=== PATIENT | female | born 1970 | race Caucasian/White ===

== ENCOUNTER 2018-02-19 23:06 | Inpatient (IN) | payer BC, OTHER ==
[~2018-02-19] VITALS: Ht 172.7 cm; Wt 56.2 kg
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
[2018-02-20 01:00] VITALS: BP 126/85
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
[2018-02-20 01:07] LABS: *URINE HCG, QUAL NEGATIVE (NEGATIVE)
[2018-02-20] MEDS ORDERED: ALBU8.5H8 IH (01:07)
[2018-02-20] MEDS ORDERED: DOXY25TA54 PO (01:07)
[2018-02-20] MEDS ORDERED: DIPH50CA37 GT (01:07)
[2018-02-20] MEDS ORDERED: MIRALAX 17 GM POWD.PACK PO PRN (01:15)
[2018-02-20] MEDS ORDERED: THIAMINE HCL 200 MG/2 ML VIAL IM ONE (01:15)
[2018-02-20] MEDS ORDERED: DICYCLOMINE HCL 20 MG TABLET PO PRN (01:15)
[2018-02-20] MEDS ORDERED: MAG HYDROX/AL HYDROX/SIMETH 30 ML LIQUID UDC PO PRN (01:15)
[2018-02-20] MEDS ORDERED: ACETAMINOPHEN 325 MG TABLET PO PRN (01:15)
[2018-02-20] MEDS ORDERED: ONDANSETRON ODT 4 MG TAB.RAPDIS SL PRN (01:15)
[2018-02-20] MEDS ORDERED: MAGNESIUM HYDROXIDE 30 ML LIQUID UDC PO PRN (01:15)
[2018-02-20] MEDS ORDERED: LOPERAMIDE HCL 2 MG CAPSULE PO PRN ×2 (01:15)
[2018-02-20 01:19] LABS: *AMPHETAMINE, URINE NEGATIVE (NEGATIVE); *BARBITURATE, URINE NEGATIVE (NEGATIVE); *CANNABINOID, URINE NEGATIVE (NEGATIVE); *COCCAINE, URINE NEGATIVE (NEGATIVE); *OPIATE, URINE NEGATIVE (NEGATIVE); *PHENCYCLIDINE SCREEN,URINE NEGATIVE (NEGATIVE)
[2018-02-20 01:40] LABS: BASOPHILS # (AUTO) 0.1 K/uL (0.0-8.0); BASOPHILS % (AUTO) 1.3 % (0.0-2.0); EOSINOPHILS # (AUTO) 0.1 K/uL (0.0-0.7); EOSINOPHILS % (AUTO) 1.8 % (0.0-7.0); HEMATOCRIT 41.7 % (31.2-41.9); HEMOGLOBIN 14.4 g/dL (10.9-14.3); LYMPHOCYTES # (AUTO) 2.3 K/uL (20.0-40.0); LYMPHOCYTES % (AUTO) 35.3 % (20.5-51.5); MEAN CORPUSCULAR HEMOGLOBIN 35.3 uug (24.7-32.8); MEAN CORPUSCULAR HGB CONC 35 g/dL (32.3-35.6); MEAN CORPUSCULAR VOLUME 102.4 fL (75.5-95.3); MONOCYTES # (AUTO) 0.4 K/uL (2.0-10.0); MONOCYTES % (AUTO) 5.6 % (0.0-11.0); NEUTROPHILS # (AUTO) 3.6 K/uL (1.8-8.9); PLATELET COUNT (AUTO) 290 K/uL (179-408); RED BLOOD CELL COUNT(AUTO) 4.08 MIL/uL (3.63-4.92); WHITE BLOOD COUNT (AUTO) 6.5 K/uL (3.8-11.8)
[2018-02-20 01:53] LABS: BILIRUBIN,TOTAL 0.3 mg/dL (0.2-1.0); MAGNESIUM 2.1 mg/dL (1.8-2.4); POTASSIUM 4.1 mmol/L (3.5-5.1); TOTAL PROTEIN, SERUM 7.8 g/dL (6.4-8.2)
[2018-02-20 02:27] LABS: THYROID STIMULATING HORMONE 4.455 mIU/mL (0.358-3.740)
[2018-02-20] MEDS ORDERED: HYDROXYZINE PAMOATE 25 MG CAPSULE PO ONE (02:30)
[2018-02-20] MEDS: IBUPROFEN 400 MG TABLET PO PRN (02:36)
[2018-02-20] MEDS: diphenhydrAMINE 50 MG CAPSULE PO PRN (02:36)
--- NOTE | 2018-02-20 02:36 | NUR ---
PRN MEDS MOTRIN,BENADRYL AND VISTARIL GIVEN ORDERED FOR C/O BACK PAIN 5/10,INSOMNIA AND ANXIETY RESPECTIVELY.WILL MONITOR FOR EFFECTIVENESS.
--- NOTE | 2018-02-20 03:35 | NUR ---
PRN REASSESSMENT PT IS CALM AND RESTING IN BED WITH EYES CLOSED.BREATHING IS EVEN AND NON LABORED,NO S/S OF DISTRESS NOTED.
--- NOTE | 2018-02-20 04:00 | NUR ---
CIWA DEFERRED DUE TO PT BEING ASLEEP,V/S REFUSED.
[2018-02-20] MEDS ORDERED: ETAN50DI2 SQ (04:11)
[2018-02-20] MEDS ORDERED: ZOLP10TA2 PO (05:05)
--- NOTE | 2018-02-20 06:30 | NUR ---
END OF SHIFT Pt is awake,asking for medications,also wants to leave,said that she has to catch a flight,unable to answer where she is going to or if she has a ticket.Pt is confused,keeps asking what the date is,has poor eye contact, observed staring blankly in space in response to any questions asked.PRN Motrin,Vistaril and Benadryl were given and were effective.Pt slept 3 hours,fluid intake is 250 mls,voided x 2. PO fluids encouraged. When asked about her alcohol intake ,she stated that she has been drinking for much longer than 3 days,still unable to give exact length of time.Pt is anxious because she wants to leave,no s/s of withdrawals noted. All safety measures in place, call light is within reach, will continue to monitor for safety.
--- NOTE | 2018-02-20 07:55 | NUR ---
Start of Shift Pt is a 47 y/o F admitted today 02/20/18 on 0100 for medically supervised ETOH and benzo withdrawal. Pt has not been placed on any tapers as of yet but prn meds are avail. upon entering room, pt is laying in bed w/ lights off, covered in blankets and appears drowsy; respiration even and unlabored. Room is odorous of ETOH and pt appears to be still intoxicated. Pt has facial flushing, no eye contact when speaking, has a delayed response to questions, selective in responding to questions, and has a blunt affect. Pt states she is wants to leave AMA stating, "I need to go to work.. and if I don't go back, my is going to leave me. I need to fly back as soon as possible." Educate pt, explained risks of leaving and benefits of completion of detox; however pt is still thinking about leaving. Encouraged pt to verbalized feelings about situation. Side rails upx2, bed in lowest postion. Call light is within reach. Will continue to monitor.
[2018-02-20 08:00] VITALS: BP 96/57
[2018-02-20] MEDS: THIAMINE HCL 100 MG TABLET PO SCH (08:46)
[2018-02-20] MEDS: LORAZEPAM 1 MG TABLET PO PRN ×4 (08:46→21:49)
[2018-02-20] MEDS: MULTIVITAMINS,THERAPEUTIC TABLET PO SCH (08:46)
[2018-02-20] MEDS: FOLIC ACID 1 MG TABLET PO SCH (08:46)
--- NOTE | 2018-02-20 08:46 | NUR ---
PRN Ativan 1 mg po prn given for CIWA 13; pt is flushed, anxious and agitated, restless, exhibits increased emotional amplitude, has clammy skin, has an anxious and upset mood and blunt affect. Tremors are noted. Will monitor and reassess.
--- NOTE | 2018-02-20 08:46 | NUR ---
CIWA 13 Upon entering room, pt is laying in bed w/ lights off, covered in blankets and appears drowsy; respiration even and unlabored. Room is odorous of ETOH and pt appears to be partially intoxicated. Pt has facial flushing, has a blunt affect, no eye contact when speaking, but has a delayed response to questions, and stares without answering questions occasionally; pt is also selective in responding to certain questions. Pt feels "extremely cold," appears disheveled, very flushed, is highly anxious, tremulous, agitated, irritated, restless, and c/o light sensitivity. Ativan prn will be administered; encouraged pt to use deep breathing exercises to promote relaxation.
--- NOTE | 2018-02-20 09:46 | NUR ---
Reassessment Pt states she is still restless, is tremulous "inside her body," anxious and agitated, mild tremors are noted. Encouraged pt to use non-pharmalogical interventions to promote relaxation. Need more encouragement and further education. Will continue to monitor. Addendum: 02/20/18 at 1503 by CARLENE MORALES RN JOSEF Martinez
--- NOTE | 2018-02-20 10:35 | NUR ---
Substance Use Hx & Treatment Hx Update Pt reports she has been binge drinking for 3 to 4 days on and off, without having more than having drinking 1-2 days in between due to withdrawal symptoms. States this pattern of drinking has been going on for 8 months; however pt states she has been drinking for longer but will not explain in detail. Pt recalls this current run was 3-4 days, last drink was yesterday 02/19/18 1050 ml of wine and one 8 oz can of beer immediately prior to arrival. Pt states she has been taking xanax 3 blue oval shaped tablets 3 mgs in total daily for 5 years that is prescribed to her by her PCP. Last use was yesterday 02/19/18. Pt states she take Ambien 10 mg daily for 6-7 years that is prescribed to her by her PCP. Last use was yesterday 02/19/18. Pt states she was at [facility] in for 90 days; left in September 2015. Addendum: 02/20/18 at 1857 by CARLENE MORALES RN Pt verbalized that she would take more than prescribed of the xanax and ambien on some days occasionally.
--- NOTE | 2018-02-20 11:37 | NUR ---
CIWA 16 / PRN Ativan 2 mg po prn given; CIWA 16. Pt present increased agitation, anxiety, tremors, sweating, clammy hands, feeling "cold," flushing, and nausea. Pt is restless and fidgety, and highly irritable; states that the last medication did not help her w/d symptoms. Will monitor and reassess. Addendum: 02/20/18 at 1346 by CARLENE MORALES RN BP 135/84, HR 93
[2018-02-20 12:08] VITALS: BP 135/84
[2018-02-20] MEDS ORDERED: 5 DAY TAPER VALIUM-SERENITY PROTOCOL PO PRN (12:15)
--- NOTE | 2018-02-20 12:30 | NUR ---
[employer] 5 day Valium taper ordered by MD; starting today.
--- NOTE | 2018-02-20 12:37 | NUR ---
Reassessment Pt reports she still feels tremulous inside and her hands appear to be shaking. Pt has a worried look and states she is highly anxious, has a sense of panic, sensations of feeling very cold, skin feels clammy, and flushed, pt appears restless, anxious, agitated and fidgety. Pt reports the med does not seem to be effective for her s/s yet. Encouraged pt to use non-pharmalogical methods to promote relaxation and distraction. Will monitor and reassess. Addendum: 02/20/18 at 1458 by CARLENE MORALES RN JOSEF Cox
[2018-02-20] MEDS: CLONIDINE HCL 0.1 MG TABLET PO PRN (12:56)
[2018-02-20] MEDS: DIAZEPAM 10 MG TABLET PO SCH ×3 (12:56→20:15)
--- NOTE | 2018-02-20 12:56 | NUR ---
PRN Clonidine 0.1 mg po prn given for sweating, anxiety, feeling cold sensations. Will monitor and reassess.
--- NOTE | 2018-02-20 13:56 | NUR ---
Reassessment Pt reports med was partially effective for sweating, clammy skin, anxiety and cold sensations. Gave pt extra blankets and heat pack. Will continue to monitor.
--- NOTE | 2018-02-20 14:50 | NUR ---
PRN Ativan 2 mg po prn given; pt appears highly anxious, agitated, irritable, fidgety, has a worried/sad expression, has racing thoughts, w/ increased amplitude, difficulty concentrating, difficulty thinking, sense of panic, c/o of increased w/d symptoms including, tremors, sweating, flushing, sensitivity to the light, anxiety and agitation, some nausea and restlessness. CIWA 19.
[2018-02-20 16:00] VITALS: BP 135/81
--- NOTE | 2018-02-20 16:00 | NUR ---
CIWA 20 / Reassessment Pt continues to appears highly anxious, flushed, w/ a worried expression and affect, agitated, irritable, fidgety, restless, pt is currently walking laps around the unit. Pt exhibits racing thoughts and increased amplitude, difficulty concentrating, difficulty thinking, sense of panic, tremors, sweating, sensitivity to the light, anxiety and agitation. Pt has gotten off the phone with her and had told her they are getting a divorce. Pt states she is thinking about leaving AMA again but is redirectable. Scheduled meds to be given.
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
--- NOTE | 2018-02-20 18:57 | NUR ---
End Of Shift Pt has been isolative, withdrawn and guarded. Pt fixed and adamant on leaving but was able to be redirected after some time. Last CIWA 20 @1600. Pt has been given Ativan 1 mg po @0846, Ativan 2 mg po @1256, ativan 2 mg @1450 and clonidine 0.1 mg po PRNs during shift. Pt has been placed on a Valium taper starting today; first dose was scheduled 1300. Pt ate 0/25/25% of meals. Safety measures in place. Endorsement will be given.
--- NOTE | 2018-02-20 19:30 | NUR ---
Start of shift note Received report from day shift Nurse. Patient is a 47 year old female, admitted for ETOH/Benzo withdrawal. Patient is on Valium taper, started today. Patient was anxious throughout the day. PRN Ativan x 3 and Clonidine given. Last CIWA 20. Patient alert and oriented x 4. Patient presents with flat affect, depressed mood, worried, flushed face, anxiety, restless, bilateral hand tremors, cold sweats, chills, pins and needles sensation on fingertips, headache, sensitivity to light, no appetite and c/o muscle aches. Relaxation technique provided. Call light in reach. Will continue to monitor.
[2018-02-20 20:00] VITALS: BP 124/70
[2018-02-20] MEDS ORDERED: METHOCARBAMOL 750 MG TABLET PO ONE (20:00)
--- NOTE | 2018-02-20 20:00 | NUR ---
CIWA assessment Flushed face, anxiety, restless, bilateral hand tremors, cold sweats, chills, pins and needles sensation on fingertips, headache, sensitivity to light, no appetite and c/o muscle aches. CIWA 17
[2018-02-20] MEDS: GABAPENTIN 400 MG CAPSULE PO SCH (20:20)
--- NOTE | 2018-02-20 20:20 | NUR ---
One time Robaxin administration Patient c/o muscle aches. Will monitor for effectiveness
--- NOTE | 2018-02-20 21:20 | NUR ---
PRN Robaxin re-assessment Patient states Robaxin helpful and effective. Will continue to monitor.
--- NOTE | 2018-02-20 21:45 | NUR ---
CIWA assessment Patient states she's anxious, restless, irritable , sweats and bilateral tremors. CIWA 14.
[2018-02-20] MEDS: QUETIAPINE FUMARATE 25 MG TABLET PO SCH (21:49)
--- NOTE | 2018-02-20 21:49 | NUR ---
PRN Ativan administration Patient states she's anxious, restless, irritable , sweats and bilateral tremors. CIWA 14
--- NOTE | 2018-02-20 22:49 | NUR ---
PRN Ativan re-assessment Patient lying in bed with eyes closed. Respiration even and unlabored. CIWA deferred. Will continue to monitor
[2018-02-21] VITALS: BP 128/76
--- NOTE | 2018-02-21 | NUR ---
CIWA deferred Patient lying in bed with eyes closed. Respiration even and unlabored. Will continue to monitor.
--- NOTE | 2018-02-21 03:40 | NUR ---
CIWA assessment Patient went up to the nurses station . Patient presents with anxiety, restless, wants to smoke , emotional votality, teary eyed, worried, sad and c/o headache. CIWA 11
[2018-02-21] MEDS: CLONIDINE HCL 0.1 MG TABLET PO PRN ×2 (03:41→12:05)
--- NOTE | 2018-02-21 03:41 | NUR ---
PRN Clonidine and Tylenol administration Patient presents with anxiety, restless, emotional votality, teary eyed, worried, sad and c/o headache. Relaxation technique provided. Will monitor for effectiveness.
[2018-02-21 04:00] VITALS: BP 115/77
--- NOTE | 2018-02-21 04:00 | NUR ---
CIWA assessment Patient came back from smoking. Patient anxious, restless, emotional votality, teary eyed, worried and sad and with headache. Patient was given PRN Clonidine and Tylenol. Relaxation technique provided and positive encouragement given. CIWA 11.
--- NOTE | 2018-02-21 04:41 | NUR ---
PRN Clonidine and Tylenol re-assessment Patient lying in bed with eyes closed. Respiration even and unlabored. No facial grimacing. Will continue to monitor.
--- NOTE | 2018-02-21 07:10 | NUR ---
End of shift note Patient slept 7 hours. Fluid intake 1,000 ml. Voided x 2. No BM. Monitored patient throughout shift. Patient presented with flat affect, depressed mood, worried, flushed face, anxiety, restless, bilateral hand tremors, cold sweats, chills, pins and needles sensation on fingertips, headache, sensitivity to light, no appetite and muscle aches. CIWA 17 at 2000. Scheduled medication and taper given as ordered. One time Robaxin given, effective. At 2145, Patient was anxious and restless. CIWA 14. PRN Valium given. CIWA deferred after an hour, patient asleep. At 0340, patient presented with anxiety, restless, emotional votality, teary eyed, worried, sad and c/o headache. Relaxation technique provided and positive encouragement given. PRN Clonidine and Tylenol given. Safety measures in place. Call light in reach. Will continue to monitor. Last CIWA 11.
[2018-02-21 08:00] VITALS: BP 124/75
[2018-02-21 08:03] LABS: AMYLASE 88 U/L (25-115); LIPASE 134 U/L (73-393)
[2018-02-21 08:06] LABS: HEPATITIS B SURFACE AG Negative (Negative)
--- NOTE | 2018-02-21 08:30 | NUR ---
Start of Shift / CIWA 15 Pt is currently sitting up in bed, ate 50% of breakfast, has a flat affect, depressive mood, and a disheveled appearance. Pt presents anxiety, agitation, restlessness, sweating, pins and needle sensations bilaterally on hands, cold sweats, sensation of feeling very cold, sensitivity to the light, headache, fatigue, anhedonia, dysphoria, stomach cramps, poor appetite myalgia of the legs, difficulty falling asleep and gross/fine tremors are seen. Scheduled meds to be given with prn comfort meds. Educated pt with today's plan of care and med regimen. Encouraged pt to verbalized feelings about situation and attend groups. Encouraged pt to maintain personal hygiene and pt stated she will take a shower today. Encouraged pt to increase fluids as tolerated; pt verbalized understanding. Side rails padded and upx2, bed in lowest position. Call light is within reach. Will continue to monitor.
[2018-02-21] MEDS: FOLIC ACID 1 MG TABLET PO SCH (08:36)
[2018-02-21] MEDS: THIAMINE HCL 100 MG TABLET PO SCH (08:36)
[2018-02-21] MEDS: GABAPENTIN 400 MG CAPSULE PO SCH ×3 (08:36→20:00)
[2018-02-21] MEDS: MULTIVITAMINS,THERAPEUTIC TABLET PO SCH (08:36)
[2018-02-21] MEDS: IBUPROFEN 400 MG TABLET PO PRN (08:37)
[2018-02-21] MEDS: DIAZEPAM 10 MG TABLET PO SCH ×3 (08:37→20:00)
--- NOTE | 2018-02-21 08:37 | NUR ---
PRN Ibuprofen 400 mg po prn given for muscle aches and pain of the legs. Will monitor and reassess.
[2018-02-21] MEDS ORDERED: TUBERCULIN,PURIF.PROT.DERIV. 5 TU/0.1 ML TEST ID ONE (09:00)
--- NOTE | 2018-02-21 09:37 | NUR ---
Reassessment Pt verbalized ibuprofen was effective in decreasing muscle aches of the legs. Safety measures in place. Will continue to monitor.
--- NOTE | 2018-02-21 10:13 | NUR ---
Therapist prompted client to attend group therapy.
--- NOTE | 2018-02-21 12:00 | NUR ---
CIWA 17 Pt is flushed, has a flat affect and depressive mood. Pt has taken a shower and attended morning groups. Pt appears fidgety, presents increased anxiety, agitation, restlessness, sweating, pins and needle sensations bilaterally on hands, cold sweats, sensation of feeling very cold, sensitivity to the light, headache, fatigue, anhedonia, dysphoria, stomach cramps, poor appetite myalgia of the legs, difficulty falling asleep and gross/fine tremors are seen. Prn meds to be given12. Encouraged pt to use non-pharmacological methods for management of symptoms. Will continue to monitor.
[2018-02-21 12:05] VITALS: BP 133/84
--- NOTE | 2018-02-21 12:05 | NUR ---
PRN Clonidine 0.1 mg po prn given for heightened anxiety; pt reports she attended groups and thought it was beneficial however her anxiety increased. Will monitor and reassess.
--- NOTE | 2018-02-21 13:05 | NUR ---
Reassessment Pt reports that med was effective in decreasing anxiety, and states she feels better than before. Safety measures in place. Will monitor.
--- NOTE | 2018-02-21 13:15 | NUR ---
Therapist prompted client to attend twice daily group therapy sessions.
[2018-02-21 16:30] VITALS: BP 140/87
--- NOTE | 2018-02-21 16:30 | NUR ---
GARRICKWA 15 Pt has just finished group and is seeking to go out to the patio. Pt continues to present flushing, has a flat affect and depressive mood, increased anxiety, agitation, restlessness, sweating, pins and needle sensations bilaterally on hands, cold sweats, sensation of feeling very cold, sensitivity to the light, headache, fatigue, anhedonia, dysphoria, stomach cramps, poor appetite, and gross/fine tremors are seen. Refuses prn meds. Encouraged pt to use non-pharmacological methods for management of symptoms. Will continue to monitor.
--- NOTE | 2018-02-21 18:44 | NUR ---
End Of Shift Pt was fixated on making phone calls to her employer. Pt attended all groups, took a shower, and put makeup on. Last CIWA 15 @1600. Pt c/o lower leg pain and anxiety. Pt has been given ibuprofen 400 mg po prn clonidine 0.1 mg po PRN. Pt ate 0/25/25% of meals. Needs more encouragement to increase food intake. Safety measures in place. Endorsement will be given.
--- NOTE | 2018-02-21 19:30 | NUR ---
Start of shift note Received report from day shift nurse. Patient is a 47 year old female admitted for ETOH withdrawal. Patient is on 2nd day of her Valium taper. Patient was given PRN Clonidine and Motrin. Last CIWA 15. Patient alert and oriented x 4. Patient presents with flat affect, worried, anxiety, restlessness, bilateral hand tremors, hot and cold sweats, emotional votality and difficulty concentrating . Relaxation technique provided and Positive encouragement given. Safety measures in place. Call light in reach. Will continue to monitor.
[2018-02-21 20:00] VITALS: BP_SYST 114; BP_SYST 129; BP_DIAS 80; BP_DIAS 84
--- NOTE | 2018-02-21 20:00 | NUR ---
CIWA assessment Patient presents with anxiety, restlessness, bilateral hand tremors, hot and cold sweats, emotional votality and difficulty concentrating . Relaxation technique provided and Positive encouragement given. CIID 12
[2018-02-21] MEDS: QUETIAPINE FUMARATE 25 MG TABLET PO SCH (20:58)
[2018-02-22] VITALS: BP 122/70
--- NOTE | 2018-02-22 | NUR ---
CIWA deferred Patient lying in bed with eyes closed. Respiration even and unlabored. Will continue to monitor
[2018-02-22 04:00] VITALS: BP 115/74
--- NOTE | 2018-02-22 04:00 | NUR ---
CIWA deferred Patient lying in bed with eyes closed. Respiration even and unlabored. Will continue to monitor
--- NOTE | 2018-02-22 05:30 | NUR ---
CIWA assessment Patient awake , anxious and restless. Non-pharmacological intervention ineffective. CIWA 9
[2018-02-22] MEDS: CLONIDINE HCL 0.1 MG TABLET PO PRN ×3 (05:38→21:47)
--- NOTE | 2018-02-22 05:38 | NUR ---
PRN Clonidine administration Patient presents with flushed face and anxiety, restlessness. Will monitor for effectiveness
--- NOTE | 2018-02-22 06:38 | NUR ---
PRN Clonidine re-assessment Patient lying in bed with eyes closed. Respiration even and unlabored. Will continue to monitor.
--- NOTE | 2018-02-22 07:05 | NUR ---
End of shift note Patient slept 6 hours. Fluid intake 1,651 ml. Voided x 2. BM x 1. Monitored patient throughout shift. Patient alert and oriented x 4. Patient presented with flat affect, worried, anxiety, restlessness, bilateral hand tremors, hot and cold sweats, emotional votality and difficulty concentrating . Relaxation technique provided and Positive encouragement given. Scheduled medication and taper given as ordered, tolerated well and no adverse reaction. At 0538, Patient woke up anxious and restless. PRN Clonidine given. Safety measures in place. Call light in reach. Will continue to monitor. Last CIWA 9 .
--- NOTE | 2018-02-22 07:30 | NUR ---
Start Of Shift Pt. is a 47 y/o female admitted for the medically managed withdrawal from ETOH (wine) and Benzodiazepines (Xanax). Pt. was also using Ambien nightly along with her substance abuse. Pt. was placed on a 5 day Valium taper that was ordered on 02/20/2018 to manage her withdrawal symptoms. Endorse from previous shift pt. presented with a flat affect, difficulty concentrating, chills, diaphoresis, tremors, anxiety, and restlessness. Pt. was given PRN Clonidine to manage withdrawal symptoms. Last CIWA of 9. Received pt. in room sitting on the edge of her bed. Pt. presents with a flat affect and is withdrawn and guarded upon approach. Encouraged pt. to verbalize concerns and emotions. Educated pt. on treatment plan and medication regiment. Pt. verbalize understanding. Safety measures in place. Will continue to monitor pt.'s behavior for safety.
[2018-02-22 08:00] VITALS: BP 104/68
--- NOTE | 2018-02-22 08:00 | NUR ---
CIWA assessment CIWA 12. Pt. presents with anxiety, diaphoresis, restlessness and tremors. Will administer medication as ordered. Will continue to monitor pt.'s behavior for safety.
[2018-02-22] MEDS: MULTIVITAMINS,THERAPEUTIC TABLET PO SCH (08:10)
[2018-02-22] MEDS: GABAPENTIN 400 MG CAPSULE PO SCH ×3 (08:10→20:03)
[2018-02-22] MEDS: THIAMINE HCL 100 MG TABLET PO SCH (08:10)
[2018-02-22] MEDS: FOLIC ACID 1 MG TABLET PO SCH (08:10)
[2018-02-22] MEDS: DIAZEPAM 5 MG TABLET PO SCH ×4 (08:10→20:04)
--- NOTE | 2018-02-22 10:07 | NUR ---
Client was prompted to attend group therapy sessions.
[2018-02-22 12:00] VITALS: BP 148/98
--- NOTE | 2018-02-22 12:00 | NUR ---
CIWA assessment CIWA 9. Pt. presents with anxiety, diaphoresis, restlessness and tremors. Pt. compliant with medication regiment. Will continue to monitor pt.'s behavior for safety.
--- NOTE | 2018-02-22 14:43 | NUR ---
PRN Medication Pt. in room sitting in bed. Pt. complaining of increased anxiety. PRN Clonidine given at this time for anxiety. Will continue to monitor pt.'s behavior for safety, and medication effectiveness.
--- NOTE | 2018-02-22 15:15 | NUR ---
PRN Re-Assessment Pt. reports decreased feelings of anxiety. Medication effective will continue to monitor pt.'s behavior for safety.
[2018-02-22 16:00] VITALS: BP 125/80
--- NOTE | 2018-02-22 16:00 | NUR ---
CIWA assessment CIWA 9. Pt. presents with anxiety, diaphoresis, restlessness and tremors. Pt. compliant with medication regiment. Will continue to monitor pt.'s behavior for safety.
--- NOTE | 2018-02-22 19:24 | NUR ---
End Of Shift Pt. is a 47 y/o female admitted for the medically managed withdrawal from ETOH (wine) and Benzodiazepines (Xanax). Pt. was also using Ambien nightly along with her substance abuse. Pt. was placed on a 5 day Valium taper that was ordered on 02/20/2018 to manage her withdrawal symptoms. Throughout shift pt. presented with a flat affect, difficulty concentrating, chills, diaphoresis, tremors, anxiety, and restlessness. Pt. was given PRN Clonidine to manage withdrawal symptoms. Last CIWA of 9. Pt. compliant with treatment plan and medication regiment. Safety measures in place. Will endorse pt.'s care to oncoming shift.
--- NOTE | 2018-02-22 19:24 | NUR ---
START OF SHIFT NOTE: This is report on patient, an 47 year old female, continues ordered 5 day Valium Taper (today is day #3) , ordered for Benzodiazepines and Alcohol withdrawal. Patient tolerated well. Upon endorsement, patient is in her room, lying in bed, and watching TV. Patient is alert and oriented x4, ambulatory with steady gait, soft clear speech. The patient appears worried, with easy distracted, anxious mood, and flat affect. Encourage to expressing her feelings, reassuring provided. The patient noted disheveled, unshaven, with uncombed hair. During day shift patient presented with following mild withdrawal symptoms such as anxiety, agitation, depression, irritability, nervousness, restlessness, tremors, fatigue, and yawning. The most recent CIWA=9. PRN Clonidine 0.1 mg PO administrated for anxiety at 1443, and was effective. Patient remains compliant with treatment, medications, and diet regimen. Encouraged to attend group activities. Encouraged to intake fluids as tolerated. All needs met. Safety measures: Call light within reach, bed locked in lowest position, padded bed rails up x2. Endorsed by outgoing day shift nurse. Will continue to monitor closely.
[2018-02-22 20:00] VITALS: BP 105/72
--- NOTE | 2018-02-22 20:00 | NUR ---
CIWA ASSESSMENT CIWA=8 at 1999. The patient appears sad and worried. Mood anxious and flat affect. The patient presented with following withdrawal symptoms such as anxiety, agitation, depression, irritability, nervousness, sweating, tremors, restlessness, fatigue, and yawning. Encouraged to intake fluids as tolerated. Safe and calm environment provided. Encouraged to intake fluids as tolerated. All needs met. Safety measures: Call light within reach, bed locked in lowest position, padded bed rails up x2. Will continue to monitor closely.
[2018-02-22] MEDS: QUETIAPINE FUMARATE 25 MG TABLET PO SCH (21:46)
--- NOTE | 2018-02-22 21:47 | NUR ---
PRN CLONIDINE 0.1 MG PO ADMINISTRATION Patient c/o increased anxiety. PRN Clonidine 0.1 mg PO administrated for anxiety at 2147 as ordered. The patient tolerated well. Safe and calm environment provided. Encouraged to intake fluids as tolerated. All needs met. Safety measures: Call light within reach, bed locked in lowest position, padded bed rails up x2. Will continue to monitor closely.
--- NOTE | 2018-02-22 22:47 | NUR ---
PRN CLONIDINE PO RE-ASSESSMENT The patient sleeping. Respirations are even and unlabored. RR:16. PRN Clonidine 0.1 mg PO administrated for anxiety at 2147 was effective. Safe and calm environment provided. Encouraged to intake fluids as tolerated. All needs met. Safety measures: Call light within reach, bed locked in lowest position, padded bed rails up x2. Will continue to monitor closely.
[2018-02-23] VITALS: BP 90/51
--- NOTE | 2018-02-23 | NUR ---
CIWA ASSESSMENT CIWA=8 at 0000. Patient presented with anxiety, agitation, depression, irritability, nervousness, sweating, fine tremors, flashed face, restlessness, fatigue, and yawning. Encouraged to intake fluids as tolerated. Safe and calm environment provided. Encouraged to intake fluids as tolerated. All needs met. Safety measures: Call light within reach, bed locked in lowest position, padded bed rails up x2. Will continue to monitor closely.
--- NOTE | 2018-02-23 | NUR ---
CIWA ASSESSMENT CIWA=12 at 0000. The patient appears anxious, agitated, yawning, with flashed face, c/o irritability,nervousness, sweating, tremors, restlessness, and fatigue. Encouraged to intake fluids as tolerated. All needs met. Safety measures: Call light within reach, bed locked in lowest position, padded bed rails up x2. Will continue to monitor closely.
[2018-02-23] MEDS: CLONIDINE HCL 0.1 MG TABLET PO PRN ×3 (03:45→17:20)
[2018-02-23] MEDS ORDERED: HYDROXYZINE PAMOATE 25 MG CAPSULE PO ONE (03:45)
--- NOTE | 2018-02-23 03:45 | NUR ---
PRN CLONIDINE 0.1 MG PO ADMINISTRATION Patient c/o increased anxiety. PRN Clonidine 0.1 mg PO administrated for anxiety at 0345 as ordered. The patient tolerated well. Safe and calm environment provided. Encouraged to intake fluids as tolerated. All needs met. Safety measures: Call light within reach, bed locked in lowest position, padded bed rails up x2. Will continue to monitor closely.
[2018-02-23 04:00] VITALS: BP 114/84
--- NOTE | 2018-02-23 04:00 | NUR ---
CIWA ASSESSMENT CIWA=11 at 0400. The patient appears sad, worried, with anxious mood and flat affect. Patient experienced withdrawal symptoms such as anxiety, agitation, irritability, flashed face, nervousness, sweating, tremors, restlessness, fatigue, and yawning. PRN Clonidine PO administrated as ordered. Encouraged to intake fluids as tolerated. All needs met. Safety measures: Call light within reach, bed locked in lowest position, padded bed rails up x2. Will continue to monitor closely.
--- NOTE | 2018-02-23 04:45 | NUR ---
PRN CLONIDINE PO RE-ASSESSMENT The patient sleeping. Respirations are even and unlabored. RR:15. PRN Clonidine 0.1 mg PO administrated for anxiety at 0345 was effective. Safe and calm environment provided. Encouraged to intake fluids as tolerated. All needs met. Safety measures: Call light within reach, bed locked in lowest position, padded bed rails up x2. Will continue to monitor closely.
--- NOTE | 2018-02-23 07:13 | NUR ---
END OF SHIFT NOTE; Presented patient, an 47 year old female, continues 5 day Valium taper (day 4), ordered for Benzodiazepines and Alcohol withdrawal. She is tolerated well. Patient is alert and oriented x4, steady gate, soft and clear speech, verbally appropriate and cooperative. CIWA=8 at 2000, CIWA=8 at 0000. Last CIWA=11 at 0400. Throughout my shift patient experienced anxiety, agitation, depression, irritability, nervousness, tremors, body aches, myalgia, stomach cramps, restlessness, sweating, fatigue, and yawning. PRN Clonidine 0.1 mg PO administrated for anxiety x2: at 2147, at 0345, and were effective. The patient remains compliant with treatment plan, medications, and diet regime. Encouraged to attend group activities. Encouraged to intake fluids as tolerated. Educated for non pharmacological method that can be used to help control pain. Patient slept for 7 hours, intake 1,510 ml, output: voided x2. Safe and calm environment provided. Encouraged to intake fluids as tolerated. All needs met. Safety measures: Call light within reach, bed locked in lowest position, padded bed rails up x2. Endorsed to day shift nurse.
[2018-02-23 08:00] VITALS: BP 94/59
--- NOTE | 2018-02-23 08:00 | NUR ---
Start of Shift Notes/CIWA Assessment: Patient received in her room. Patient appears anxious, flat affect, and noted with sweating and mild tremors to BUE. She appears agitated and states "I'm no longer taking any Valium." Patient was educated on the risk and benefits involved especially emphasized on risk for seizures. Patient verbalizes "Don't worry, I'm not going to have a seizure." Seizure education was provided and reinforced. CIWA 11 upon assessment. Patient is a 47 year old female admitted for ETOH/BZO withdrawal who was placed on a 5-day Valium taper as ordered. No adverse reactions noted. Per night report, patient was given Clonidine x 2. Slept for a total of 7 hours. Last CIWA 11. Educated patient on her current plan of care for the day and her medication regimen. Encouraged oral fluid intake and encouraged group participation to learn new skills to prevent relapse. Will continue to monitor.
[2018-02-23] MEDS: GABAPENTIN 400 MG CAPSULE PO SCH ×3 (09:00→20:52)
[2018-02-23] MEDS: DIAZEPAM 5 MG TABLET PO SCH ×3 (09:00→20:52)
[2018-02-23] MEDS: THIAMINE HCL 100 MG TABLET PO SCH (09:00)
[2018-02-23] MEDS: FOLIC ACID 1 MG TABLET PO SCH (09:00)
[2018-02-23] MEDS: MULTIVITAMINS,THERAPEUTIC TABLET PO SCH (09:00)
--- NOTE | 2018-02-23 09:19 | NUR ---
0900 meds not administered: Patient refused all 0900 meds including Valium. Educated patient on the risk and benefits but patient still refused. Offered 3x. Will continue to monitor.
--- NOTE | 2018-02-23 10:52 | NUR ---
Clonidine 0.1mg PO given: Patient complained of anxiety, sweats and agitation. Worried facial expression noted. Encouraged patient to verbalize her feelings and concerns but did not help. Requested for Clonidine. Clonidine 0.1mg PO given as ordered. BP WNL. Will continue to monitor for effectiveness.
--- NOTE | 2018-02-23 11:52 | NUR ---
Re-assessment: Clonidine Patient verbalize relief from anxiety, and sweats. PRN Clonidine was effective.
[2018-02-23 12:00] VITALS: BP 104/70
--- NOTE | 2018-02-23 12:00 | NUR ---
CIWA Assessment: CIWA 13, patient continues to present with anxiety, agitation and sweats. Offered PRNs but refused. Support provided. Able to participate in group.
[2018-02-23 16:00] VITALS: BP 122/82
--- NOTE | 2018-02-23 16:18 | NUR ---
CIWA Assessment: CIWA 10, patient continues to present with anxiety, agitation, gross tremors, clammy skin, irritability and fatigue. Support provided. Will continue to monitor.
--- NOTE | 2018-02-23 16:34 | NUR ---
Therapist prompted client to attend group therapy sessions daily.
--- NOTE | 2018-02-23 17:20 | NUR ---
Clonidine 0.1mg PO given: Patient requested for Clonidine. She states "My anxiety is making me sick." VS WNL. Encouraged patient to verbalize his feelings and concerns with no help. Medicated patient with Clonidine 0.1mg PO as ordered. Will monitor for effectiveness.
--- NOTE | 2018-02-23 18:20 | NUR ---
Re-assessment: Clonidine Patient verbalizes relief from anxiety and agitation. PRN Clonidine was effective.
--- NOTE | 2018-02-23 19:09 | NUR ---
START OF SHIFT NOTE: Endorsed patient admitted to [facility] for medically supervised for withdrawal from Benzodiazepines and Alcohol, continues ordered 5 day Valium Taper (today is day #3) which tolerated well. Withdrawal symptoms will be closely monitoring. The patient is alert and oriented x4, ambulatory with steady gait, soft clear speech, cooperative, and verbally appropriate. The patient appears sad, worried, difficulty concentrating, with poor eye contact. Anxious mood, and flat affect. Encourage to expressing her feelings, reassuring provided. Throughout day shift patient experienced mild withdrawal symptoms such as anxiety, agitation, depression, irritability, nervousness, tremors, myalgia, restlessness, and fatigue. The most recent CIWA=10. PRN Clonidine 0.1 mg PO administrated for anxiety at 1720, and was effective per day shift nurse report. Patient remains compliant with treatment, medications, and diet regimen. Encouraged to attend group activities. Encouraged to intake fluids as tolerated. All needs met. Safety measures: Call light within reach, bed locked in lowest position, padded bed rails up x2. Endorsed by outgoing day shift nurse. Will continue to monitor closely.
--- NOTE | 2018-02-23 19:09 | NUR ---
End of Shift Notes: Patient continues to be on 5-day Valium taper as ordered to manage withdrawal symptoms related to ETOH and BZO withdrawal. VS monitored closely. No significant abnormalities noted. Withdrawal symptoms were closely monitored. Initial CIWA 11, patient presented with facial flushing, clammy skin, anxiety, agitation, sweats, chills and restlessness. Last CIWA 10. Patient refused 0900 meds today including the Valium at 0900 but took 1500 dose. Clonidine 0.1 mg PO given at 1052 and 1720 fof anxiety and agitation with help. Reinforced compliance with meds to prevent seizures but still refused. Participated in group and activities. Appetite good. All needs met and attended. Will continue to monitor closely.
[2018-02-23 20:00] VITALS: BP 126/84
--- NOTE | 2018-02-23 20:00 | NUR ---
CIWA ASSESSMENT CIWA=11 at 0000. The patient presented with anxiety, agitation, irritability, flashed face, nervousness, sweating, tremors, restlessness, and fatigue. Encouraged to intake fluids as tolerated. All needs met. Safety measures: Call light within reach, bed locked in lowest position, padded bed rails up x2. Will continue to monitor closely. Addendum: 02/24/18 at 0257 by LELAND ALFREDO RN CIWA=11 AT 2000.
[2018-02-23] MEDS: QUETIAPINE FUMARATE 25 MG TABLET PO SCH (22:02)
[2018-02-23] MEDS: diphenhydrAMINE 50 MG CAPSULE PO PRN (22:50)
--- NOTE | 2018-02-23 22:50 | NUR ---
PRN BENADRYL 50 MG PO ADMINISTRATION. PRN Benadryl administrated for insomnia at 2250 Patient tolerated well. Encouraged to intake fluids as tolerated. All needs met. Safety measures: Call light within reach, bed locked in lowest position, padded bed rails up x2. Will continue to monitor closely.
--- NOTE | 2018-02-23 23:50 | NUR ---
PRN RE-ASSESSMENT The patient sleeping. Respirations are even and unlabored. RR:16. PRN Benadryl administrated for insomnia at 2250 was effective. Safe and calm environment provided. Encouraged to intake fluids as tolerated. All needs met. Safety measures: Call light within reach, bed locked in lowest position, padded bed rails up x2. Will continue to monitor closely.
[2018-02-24] VITALS: BP 103/67
--- NOTE | 2018-02-24 | NUR ---
CIWA ASSESSMENT CIWA=12 at 0000. Patient noted with anxiety, agitation, obv.irritability, nervousness, sweating, bilateral tremors,and restlessness. Safe and calm environment provided. All needs met. Safety measures: Call light within reach, bed locked in lowest position, padded bed rails up x2. Will continue to monitor closely.
[2018-02-24] MEDS: CLONIDINE HCL 0.1 MG TABLET PO PRN ×4 (00:56→21:43)
--- NOTE | 2018-02-24 00:56 | NUR ---
PRN CLONIDINE 0.1 MG PO ADMINISTRATION Patient c/o increased anxiety. PRN Clonidine 0.1 mg PO administrated for anxiety at 0056 as ordered. The patient tolerated well. Safe and calm environment provided. Encouraged to intake fluids as tolerated. All needs met. Safety measures: Call light within reach, bed locked in lowest position, padded bed rails up x2. Will continue to monitor closely.
--- NOTE | 2018-02-24 01:56 | NUR ---
PRN RE-ASSESSMENT The patient sleeping. Respirations are even and unlabored. RR:15. PRN Clonidine 0.1 mg PO administrated for anxiety at 0056 was effective. Safe and calm environment provided. Encouraged to intake fluids as tolerated. All needs met. Safety measures: Call light within reach, bed locked in lowest position, padded bed rails up x2. Will continue to monitor closely.
[2018-02-24] MEDS ORDERED: HYDROXYZINE PAMOATE 25 MG CAPSULE PO ONE (02:45)
--- NOTE | 2018-02-24 03:04 | NUR ---
PRN VISTARIL 25 MG PO ADMINISTRATION Patient c/o increased anxiety. PRN Vistaril 25 mg PO administrated for anxiety at 0304 as ordered. Patient tolerated well. Safe and calm environment provided. Encouraged to intake fluids as tolerated. All needs met. Safety measures: Call light within reach, bed locked in lowest position, padded bed rails up x2. Will continue to monitor closely.
--- NOTE | 2018-02-24 04:00 | NUR ---
VS REFUSED, CIWA DEFERRED Patient refused VS, CIWA deferred due to patient sleeping. Respirations are even and unlabored. Assessment will be done while patient awake. Safe and calm environment provided. All needs met. Safety measures: Call light within reach, bed locked in lowest position, padded bed rails up x2. Will continue to monitor closely.
--- NOTE | 2018-02-24 05:04 | NUR ---
PRN RE-ASSESSMENT The patient sleeping. Respirations are even and unlabored. RR:16. PRN Vistaril 25 mg PO administrated for anxiety at 0404 was effective. Safe and calm environment provided. Encouraged to intake fluids as tolerated. All needs met. Safety measures: Call light within reach, bed locked in lowest position, padded bed rails up x2. Will continue to monitor closely.
--- NOTE | 2018-02-24 07:07 | NUR ---
END OF SHIFT NOTE: Report given for patient, 47 year old female, admitted to for Benzodiazepines and Alcohol withdrawal, continues ordered 5 day Valium taper (today is day #5). The patient tolerated well. Withdrawal symptoms was closely monitored. The patient is alert and oriented x4, ambulatory with steady gait, soft clear speech, cooperative, and verbally appropriate. CIWA=11 at 2000, CIWA= 12 at 0000. During my shift patient experienced mild withdrawal symptoms such as anxiety, agitation, obv.irritability, nervousness, sweating, bilateral tremors, and restlessness. PRN Benadryl administrated for insomnia at 2250, PRN Clonidine 0.1 mg PO administrated for anxiety at 0056, PRN Vistaril 25 mg PO administrated for anxiety at 0404, and were effective. Patient remains compliant with treatment, medications, and diet regimen. Patient slept for 6 hours, intake 1,582 ml, output: voided x3. Safe and calm environment provided. Encouraged to intake fluids as tolerated. All needs met. Safety measures: Call light within reach, bed locked in lowest position, padded bed rails up x2. Endorsed to day shift nurse.
--- NOTE | 2018-02-24 07:30 | NUR ---
Start of Shift Crown And Bridge Technician received report on 47 year old female admitted to [facility] on 02/19/18 for medical management of ETOH and Benzodiazepine withdrawals. Pt endorses allergies to Sulfa and Flagyl. Pt eats a regular diet and is a full code. Pt endorses PMH of RA, with a PPH of anxiety and depression. Pt completing a 5 day Valium taper today, last CIWA 12, per NOC report. Pt was administered Clonidine(Anxiety), Benadryl(Insomnia) and Vistaril(anxiety) as PRN medications on NOC, per report. Crown And Bridge Technician encounters pt at nurses station. Pt is A/O x4 and makes her needs known, needy and entitled. Pt focused on medication, anxiety medication. Pt with a flat affect and depressed mood. Bed in low position, with wheels locked and side rails up x2. Will continue to monitor, support and encourage according to plan of care.
[2018-02-24 08:00] VITALS: BP 107/86
--- NOTE | 2018-02-24 08:00 | NUR ---
CIWA 9 Pt is tremulous, diaphoretic, anxious and restless with complains of nausea and anxiety. Will continue to monitor, support and encourage according to plan of care.
[2018-02-24] MEDS: FOLIC ACID 1 MG TABLET PO SCH (08:35)
[2018-02-24] MEDS: MULTIVITAMINS,THERAPEUTIC TABLET PO SCH (08:35)
[2018-02-24] MEDS: THIAMINE HCL 100 MG TABLET PO SCH (08:35)
[2018-02-24] MEDS: GABAPENTIN 400 MG CAPSULE PO SCH ×3 (08:36→20:24)
[2018-02-24] MEDS: DIAZEPAM 5 MG TABLET PO SCH ×2 (08:36→20:24)
--- NOTE | 2018-02-24 09:48 | NUR ---
PRN Clonidine(Anxiety) Pt states, " the Valium isn't working, can I get the clonidine." Flatwork Presser administered medication per order with pt tolerating well. Will continue to monitor, support and encourage according to plan of care.
--- NOTE | 2018-02-24 10:48 | NUR ---
PRN Re-Assessment Pt endorses relief, " I am feeling a bit better." Will continue to monitor, support and encourage according to plan of care.
--- NOTE | 2018-02-24 12:00 | NUR ---
CIWA 8 Pt with fine tremors, anxious and restless. Will continue to monitor, support and encourage according to plan of care.
[2018-02-24 12:30] VITALS: BP 112/75
--- NOTE | 2018-02-24 14:32 | NUR ---
Therapist prompted client to attend daily group therapy sessions.
--- NOTE | 2018-02-24 15:34 | NUR ---
PRN Clonidine Pt complains of anxiety of 8/10, and requests medication. Table Runner administered medication per MD order with pt tolerating well. Will continue to monitor, support and encourage according to plan of care.
[2018-02-24 16:30] VITALS: BP 123/78
--- NOTE | 2018-02-24 16:30 | NUR ---
CIWA 7 Pt with fine tremors, anxiety, restless and nauseas. Will continue to monitor, support and encourage according to plan of care.
--- NOTE | 2018-02-24 16:34 | NUR ---
PRN RE-Assessment Pt just completed group and endorses relief from anxiety. Will continue to monitor, support and encourage according to plan of care.
--- NOTE | 2018-02-24 19:04 | NUR ---
End of Shift Theater Set Production Designer provided report on 47 year old female admitted to [facility] on 02/19/18 for medical management of ETOH and Benzodiazepine withdrawals. Pt endorses allergies to Sulfa and Flagyl. Pt eats a regular diet and is a full code. Pt endorses PMH of RA, with a PPH of anxiety and depression. Pt completing a 5 day Valium taper today, last CIWA 7. Pt was administered Clonidine(Anxiety) x2 as PRN medications. Pt is A/O x4 and makes her needs known. Pt with a flat affect and congruent mood. Pt perseverates on anxiety medication. Calm and cooperative, polite with telegraphic typewriter installer. Bed in low position, with wheels locked and side rails up x2.
--- NOTE | 2018-02-24 19:30 | NUR ---
Start Of Shift Patient is a 47 yr old female who was admitted to [facility] on 02/19/18 for a medically supervised withdrawal from ETOH ( Wine) and Benzodiazepines ( Xanax) and also used Ambien. She has been placed on a 5 day Valium taper and this is day 5. PRN medications given on PM shift : Clonidine x2 for anxiety. Currently she is attending the H&I meeting. Her last CIWA was 7 @ 1600.Continue to follow MD plan of care and offer support as needed.
[2018-02-24 20:00] VITALS: BP 127/85
--- NOTE | 2018-02-24 20:00 | NUR ---
CIWA 11 Patients withdrawal symptoms present as bilateral hand tremors, increased anxiety, restlessness and diaphoresis. Scheduled Valium 5mg and Gabapentin given Clonidine PRN will be given @ 2130 per pt request
[2018-02-24] MEDS ORDERED: QUETIAPINE FUMARATE 25 MG TABLET PO SCH (21:00)
--- NOTE | 2018-02-24 21:40 | NUR ---
PRN Clonidine Clonidine 0.1mg PO given per request for anxiety
[2018-02-24] MEDS: QUETIAPINE FUMARATE 100 MG TABLET PO SCH (22:32)
--- NOTE | 2018-02-24 22:40 | NUR ---
PRN Reassess patient states that Clonidine 0.1mg PO was effective in helping reduce her anxiety
--- NOTE | 2018-02-25 | NUR ---
PRN Clonidine Clonidine 0.1mg PO given for increased anxiety
--- NOTE | 2018-02-25 | NUR ---
CIWA/VITALS Deferred due to patient requesting to be able to sleep through the night, RR 14, breathing even and unlabored.
--- NOTE | 2018-02-25 04:00 | NUR ---
CIWA/Vitals Deferred per patients request to sleep, RR 14, breathing even and unlabored, side rails up x2, call light within reach.
[2018-02-25 04:40] VITALS: BP 117/67
--- NOTE | 2018-02-25 04:40 | NUR ---
PRN PRN Clonidine 0.1mg Po given per patient request for increased anxiety and restlessness.
--- NOTE | 2018-02-25 04:40 | NUR ---
CIWA 12 Withdrawal symptoms present as bilateral hand tremors, increased anxiety and irritability, restlessness and emotional volatility Clonidine 0.1mg PO given PRN per patient request
[2018-02-25] MEDS: CLONIDINE HCL 0.1 MG TABLET PO PRN ×4 (04:49→23:31)
--- NOTE | 2018-02-25 05:40 | NUR ---
PRN Reassess Clonidine effective per patient report, she feels less anxious
--- NOTE | 2018-02-25 07:16 | NUR ---
End Of Shift : Patient is a 47 yr old female who was admitted to [facility] on 02/19/18 for a medically supervised withdrawal from Alcohol and Benzodiazepines, she has completed a 5 day Valium taper and will be discharged tomorrow 02/26/18. PRN medications given on this shift : Clonidine x2. She had a fluid intake of 1700ML, 3 Voids and 0 BM, her last CIWA was 12 @ 0440 and she slept for 7 hours. Her withdrawal symptoms have included increased anxiety, bilateral hand tremors, restlessness and emotional volatility. Continue to follow MD plan of care and offer support as needed. Endorsed to shift mechanic.
--- NOTE | 2018-02-25 07:30 | NUR ---
Start of shift Last CIWA 12 at 0440. Pt completed 5 day Valium taper yesterday. Pt scheduled for discharge tomorrow. Pt presents with fine tremors, moderate anxiety, restlessness, anhedonia, dysphoria, and depressed mood. Last night Pt spelt 7 hours. Encouraged Pt to participate in group activities, socialize with others and identify positive coping skills to maintain sobriety. Seizure and Fall precautions and all safety measures in place. Side rails up x2. Call light functioning and within reach. All needs attended and met. Will continue to assess for withdrawal symptoms.
[2018-02-25 08:06] VITALS: BP 113/71
--- NOTE | 2018-02-25 08:10 | NUR ---
CIWA 10- Withdrawal symptoms present as fine tremors, moderate anxiety, restlessness and fatigue, dysphoria, and difficulty concentrating.
[2018-02-25] MEDS: THIAMINE HCL 100 MG TABLET PO SCH (08:38)
[2018-02-25] MEDS: GABAPENTIN 400 MG CAPSULE PO SCH ×3 (08:38→20:35)
[2018-02-25] MEDS: FOLIC ACID 1 MG TABLET PO SCH (08:38)
[2018-02-25] MEDS: MULTIVITAMINS,THERAPEUTIC TABLET PO SCH (08:38)
--- NOTE | 2018-02-25 11:06 | NUR ---
PRN Clonidine 0.1 mg PO for moderate anxiety.
[2018-02-25 12:00] VITALS: BP 133/91
--- NOTE | 2018-02-25 12:06 | NUR ---
Reassess Clonidine- Pt reports anxiety remains elevated. Medication not effective. Pt reports she is anxious about her discharge tomorrow. Encouraged Pt to practice self-soothing techniques such as progressive muscle relaxation.
[2018-02-25] MEDS ORDERED: GABA-536 PO (12:13)
[2018-02-25] MEDS ORDERED: ALBU8.5H8 IH (12:13)
[2018-02-25] MEDS ORDERED: ETAN50DI2 SQ (12:13)
[2018-02-25] MEDS ORDERED: CLON0.1T14 PO (12:13)
--- NOTE | 2018-02-25 12:20 | NUR ---
CIWA 10- Withdrawal symptoms include, fatigue, moderate anxiety, fine tremors, decreased appetite, depression, difficulty concentrating and generalized discomfort.
[2018-02-25 16:00] VITALS: BP 145/89
--- NOTE | 2018-02-25 16:13 | NUR ---
CIWA 9- Withdrawal symptoms include moderate anxiety, fine tremors, fatigue, decreased appetite, depression, difficulty concentrating and generalized discomfort.
--- NOTE | 2018-02-25 17:40 | NUR ---
PRN Clonidine 0.1mg PO for moderate anxiety. Pt restless, pacing, irritable.
--- NOTE | 2018-02-25 18:38 | NUR ---
Reassess Clonidine- Pt reports anxiety improved. She still is worried about discharge tomorrow.
--- NOTE | 2018-02-25 18:38 | NUR ---
End of shift Last CIWA 9 at 1600. Pt completed 5 day Valium taper yesterday. Pt scheduled for discharge tomorrow to [facility]. Withdrawal symptoms today include fine tremors, moderate anxiety, restlessness, anhedonia, dysphoria, and depressed mood. PRN given today was Clonidine two times. Encouraged Pt to participate in group activities, socialize with others and identify positive coping skills to maintain sobriety. Encouraged Pt to practice self-soothing techniques such as progressive muscle relaxation and use diversional activities to alleviate anxiety. PO fluids 2875ml, voids x 6, BM x 1. Seizure and Fall precautions and all safety measures in place. Side rails up x2. Call light functioning and within reach. All needs attended and met. Will continue to assess for withdrawal symptoms. Endorsed to PM shift.
--- NOTE | 2018-02-25 19:20 | NUR ---
Start Of Shift Patient is a 47 yr old female who was admitted to [facility] on 02/19/18 for a medically supervised withdrawal from ETOH and Benzodiazepines ( Xanax) and also states she uses Ambien every night. She has completed a 5 day Valium taper and will be discharged home tomorrow. PRN medications given on day shift : Clonidine 0.1mg PO for anxiety. She is walking in the hallways at this time and voices no concerns, last CIWA was 9 @ 1600. Continue to follow MD plan of care and offer support as needed.
[2018-02-25 20:00] VITALS: BP 110/75
--- NOTE | 2018-02-25 20:00 | NUR ---
CIWA 9 Withdrawal symptoms present as increased anxiety, excitability, decreased appetite, lethargy and depression.
--- NOTE | 2018-02-25 23:30 | NUR ---
PRN Clonidine Clonidine 0.1mg PO given for anxiety
[2018-02-25] MEDS: QUETIAPINE FUMARATE 100 MG TABLET PO SCH (23:31)
--- NOTE | 2018-02-26 | NUR ---
CIWA/ VS Deferred per pt request, RR 14, breathing unlabored
--- NOTE | 2018-02-26 00:30 | NUR ---
PRN Reassess Pt asleep, breathing even and unlabored
[2018-02-26] MEDS ORDERED: HYDROXYZINE PAMOATE 25 MG CAPSULE PO ONE (03:40)
--- NOTE | 2018-02-26 03:45 | NUR ---
ONE TIME VISTARIL Pt complains of increased anxiety and restlessness. One time vistaril 25mg administered as ordered. Safety measures in place. Will monitor effectiveness.
[2018-02-26 04:00] VITALS: BP 99/54
--- NOTE | 2018-02-26 04:00 | NUR ---
GARRICKWA 8 Patient complains of increased anxiety and insomnia , she is worried about leaving in the AM and seeing her . Vistaril 25mg PO PRN was given
--- NOTE | 2018-02-26 06:58 | NUR ---
End Of Shift : Patient is a 47 yr old female who was admitted to [facility] on 02/19/18 for a medically supervised withdrawal from Alcohol and Benzodiazepines, she has completed a 5 day Valium taper and will be discharged to home this AM. PRN medications given on this shift : Clonidine and Vistaril. She had a fluid intake of 1855ML, 4 Voids and 0 BM, her last CIWA was 8 @ 0400 and she slept for 6 hours. Her withdrawal symptoms have included increased anxiety, bilateral hand tremors, restlessness and emotional volatility. Continue to follow MD plan of care and offer support as needed. Endorsed to overnight stocker.
--- NOTE | 2018-02-26 07:44 | NUR ---
Start of shift Last CIWA 8 at 0400. Pt completed 5 day Valium taper yesterday. Pt scheduled for discharge today. Withdrawal symptoms this morning include fine tremors, moderate anxiety, anhedonia, dysphoria, and depressed mood. Pt very anxious about her discharge home. Pt slept 5 hours last night. Seizure and Fall precautions and all safety measures in place. Side rails up x2. Call light functioning and within reach. All needs attended and met. Will continue to assess for withdrawal symptoms.
[2018-02-26 08:00] VITALS: BP 143/87
--- NOTE | 2018-02-26 08:05 | NUR ---
CIWA 7- Pt presents with moderate anxiety, minimal agitation, fine tremors, anhedonia and depressed mood. Pt very anxious about returning home this morning.
[2018-02-26] MEDS: MULTIVITAMINS,THERAPEUTIC TABLET PO SCH (08:33)
[2018-02-26] MEDS: GABAPENTIN 400 MG CAPSULE PO SCH (08:33)
[2018-02-26 08:34] VITALS: BP 143/87
[2018-02-26] MEDS: CLONIDINE HCL 0.1 MG TABLET PO PRN (08:34)
[2018-02-26] MEDS: FOLIC ACID 1 MG TABLET PO SCH (08:34)
[2018-02-26] MEDS: THIAMINE HCL 100 MG TABLET PO SCH (08:34)
--- NOTE | 2018-02-26 08:35 | NUR ---
PRN Clonidine 0.1 mg PO for moderate anxiety.
--- NOTE | 2018-02-26 09:35 | NUR ---
Reassess Clonidine- Pt reports anxiety slightly improved. She is still nervous about going home and seeing her .
--- NOTE | 2018-02-26 09:40 | NUR ---
Discharge Note Pt has been discharged from [facility]. Pt is in stable condition, VS WNL. Pt denies suicidal and homicidal ideations at this time. All documentation has been completed, paperwork signed and dated. Pt left with all her belongings, medications, and prescriptions. Pt has been discharged from [facility] on 02/26/18 at 0939. has been notified.
== END 2018-02-26 09:39 | disposition home or self-care (01) | DRG 895 ==
LOC: SRC 23:26
PROVIDERS: ADMIT Family Medicine Addiction Medicine; ATTEND Family Medicine Addiction Medicine
PROC: HZ2ZZZZ Detoxification Services for Substance Abuse Treatment (ICD-10-PCS; principal; 2018-02-19)
PROC: HZ41ZZZ Group Counseling for Substance Abuse Treatment, Behavioral (ICD-10-PCS; 2018-02-21)
PROC: HZ31ZZZ Individual Counseling for Substance Abuse Treatment, Behavioral (ICD-10-PCS; 2018-02-22)
PROC: HZ59ZZZ Individual Psychotherapy for Substance Abuse Treatment, Supportive (ICD-10-PCS; 2018-02-22)
DX: F10.230 Alcohol dependence with withdrawal, uncomplicated (principal); F13.230 Sedative, hypnotic or anxiolytic dependence with withdrawal, uncomplicated; F32.9 Major depressive disorder, single episode, unspecified; Y90.8 Blood alcohol level of 240 mg/100 ml or more; M06.9 Rheumatoid arthritis, unspecified; Z81.8 Family history of other mental and behavioral disorders; Z91.5 Personal history of self-harm; Z63.0 Problems in relationship with spouse or partner; J45.909 Unspecified asthma, uncomplicated; F41.9 Anxiety disorder, unspecified; R94.6 Abnormal results of thyroid function studies
CPT/HCPCS: 36415; 70030-TC; 80307; 80346; 83690; 83735; 84443; 84481; 84703; 85025; 86580; 86592; 86705; 86803; 87340; 87806; A4663; G0480; J3411; Q0163

== ENCOUNTER 2018-03-05 09:46 | Inpatient (IN) | payer BC, OTHER ==
[~2018-03-05] VITALS: Ht 172.7 cm; Wt 56.2 kg
[~2018-03-05 09:46] MED LIST: ALBU8.5H8 IH; CLON0.1T14 PO; ETAN50DI2 SQ; GABA-536 PO
--- NOTE | 2018-03-05 10:30 | NUR ---
Intake assessment: 47/yo female admitted for medically supervised withdrawal of ETOH and benzodiazepines. Explained protocols of detox regiman. Vitals 120/79, HR 92, Temp 97.8, O2Sat 100%, resp 18. Allergies to SULFA, KEFLEX, FLAGYL. Pt A&Ox4, Pt appears mildly intoxicated, slow/slurred speech, avoidant eye contact, tearful with flat affect and depressed mood.
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
[2018-03-05] MEDS ORDERED: MIRALAX 17 GM POWD.PACK PO PRN (11:15)
[2018-03-05] MEDS ORDERED: diphenhydrAMINE 50 MG CAPSULE PO PRN (11:15)
[2018-03-05] MEDS ORDERED: MAGNESIUM HYDROXIDE 30 ML LIQUID UDC PO PRN (11:15)
[2018-03-05] MEDS ORDERED: ONDANSETRON ODT 4 MG TAB.RAPDIS SL PRN (11:15)
[2018-03-05] MEDS ORDERED: LOPERAMIDE HCL 2 MG CAPSULE PO PRN ×2 (11:15)
[2018-03-05] MEDS ORDERED: DIAZEPAM 5 MG TABLET PO PRN (11:15)
[2018-03-05] MEDS ORDERED: 3 DAY TAPER OF VALIUM-SERENITY PROTOCOL PO PRN (11:15)
[2018-03-05] MEDS ORDERED: CLONIDINE HCL 0.1 MG TABLET PO PRN (11:15)
[2018-03-05] MEDS ORDERED: ONDANSETRON 4 MG/2 ML VIAL IM PRN (11:15)
[2018-03-05] MEDS ORDERED: ACETAMINOPHEN 325 MG TABLET PO PRN (11:15)
[2018-03-05] MEDS ORDERED: DIAZEPAM 10 MG TABLET PO PRN ×2 (11:15)
[2018-03-05] MEDS ORDERED: MAG HYDROX/AL HYDROX/SIMETH 30 ML LIQUID UDC PO PRN (11:15)
[2018-03-05] MEDS ORDERED: IBUPROFEN 400 MG TABLET PO PRN (11:15)
[2018-03-05 11:38] LABS: *URINE HCG, QUAL NEGATIVE (NEGATIVE)
[2018-03-05] MEDS ORDERED: THIAMINE HCL 200 MG/2 ML VIAL IM ONE (11:43)
[2018-03-05 11:46] LABS: *AMPHETAMINE, URINE NEGATIVE (NEGATIVE); *BARBITURATE, URINE NEGATIVE (NEGATIVE); *CANNABINOID, URINE NEGATIVE (NEGATIVE); *COCCAINE, URINE NEGATIVE (NEGATIVE); *OPIATE, URINE NEGATIVE (NEGATIVE); *PHENCYCLIDINE SCREEN,URINE NEGATIVE (NEGATIVE)
[2018-03-05 12:23] VITALS: BP 128/82
[2018-03-05] MEDS: GABAPENTIN 400 MG CAPSULE PO SCH ×2 (12:38→21:02)
[2018-03-05] MEDS: FOLIC ACID 1 MG TABLET PO SCH (12:38)
[2018-03-05] MEDS: MULTIVITAMINS,THERAPEUTIC TABLET PO SCH (12:38)
[2018-03-05] MEDS: DIAZEPAM 10 MG TABLET PO SCH ×2 (12:40→21:02)
[2018-03-05 14:12] LABS: BASOPHILS # (AUTO) 0.1 K/uL (0.0-8.0); BASOPHILS % (AUTO) 1.3 % (0.0-2.0); EOSINOPHILS # (AUTO) 0.1 K/uL (0.0-0.7); EOSINOPHILS % (AUTO) 2.9 % (0.0-7.0); HEMATOCRIT 35.3 % (31.2-41.9); HEMOGLOBIN 12.1 g/dL (10.9-14.3); LYMPHOCYTES # (AUTO) 1.5 K/uL (20.0-40.0); MEAN CORPUSCULAR HGB CONC 34 g/dL (32.3-35.6); MEAN CORPUSCULAR VOLUME 101.7 fL (75.5-95.3); MONOCYTES # (AUTO) 0.3 K/uL (2.0-10.0); MONOCYTES % (AUTO) 8.1 % (0.0-11.0); NEUTROPHILS # (AUTO) 2.1 K/uL (1.8-8.9); NEUTROPHILS % (AUTO) 50.7 % (38.5-71.5); PLATELET COUNT (AUTO) 278 K/uL (179-408); RED BLOOD CELL COUNT(AUTO) 3.47 MIL/uL (3.63-4.92); WHITE BLOOD COUNT (AUTO) 4.1 K/uL (3.8-11.8)
[2018-03-05 14:42] LABS: BILIRUBIN,TOTAL 0.3 mg/dL (0.2-1.0); CREATININE 0.9 mg/dL (0.6-1.3); MAGNESIUM 1.9 mg/dL (1.8-2.4); POTASSIUM 3.4 mmol/L (3.5-5.1); TOTAL PROTEIN, SERUM 6.6 g/dL (6.4-8.2)
[2018-03-05 14:53] LABS: THYROID STIMULATING HORMONE 3.215 mIU/mL (0.358-3.740)
[2018-03-05] MEDS: CLONIDINE HCL 0.1 MG TABLET PO PRN ×2 (14:55→21:02)
--- NOTE | 2018-03-05 14:56 | NUR ---
PRN Clonidine 0.1 mg PO for moderate anxiety. Pt tearful, emotional and restless.
[2018-03-05] MEDS ORDERED: POTASSIUM CHLORIDE 20 MEQ TAB.PRT.SR PO ONE (15:45)
--- NOTE | 2018-03-05 16:00 | NUR ---
Reassess Clonidine- Pt reports anxiety slightly improved.
[2018-03-05 16:03] VITALS: BP 90/53
--- NOTE | 2018-03-05 16:11 | NUR ---
CIWA 9- Pt c/o chills, anxiety, fatigue, fine tremors, has flushed face, flat affect and depressed mood.
--- NOTE | 2018-03-05 18:37 | NUR ---
End of Shift Last CIWA 9 at 1600. Pt is on 3 day Valium taper. Pt continues to have anxiety, chills, face flushed, anhedonia and depressed mood. PRN given today Clonidine. Encouraged Pt to participate in group activities, socialize with others and identify positive coping skills to maintain sobriety. PO fluids 1500 ml, voids x3, BMx2. Fall precautions and all safety measures in place. Side rails up x2. Call light functioning and within reach. All needs attended and met. Will continue to assess for withdrawal symptoms. Endorsed to PM shift.
--- NOTE | 2018-03-05 19:15 | NUR ---
START OF SHIFT Patient is a 47-year-old female admitted on 03/05/18 for ETOH and benzodiazepine withdrawal. Patient is currently on a 3-day Valium taper, started earlier today, tolerating well. Patients last CIWA was 9 per day shift. Patient received PRN Clonidine, which was noted to be effective. Upon assessment, patient appears disheveled and anxious, verbalizing difficulty sleeping and feeling very cold. Patient complains of chills and sweats as well. Patient is on fall and seizure precautions with no previous seizure history. Meds scheduled for 2100. Will continue to monitor.
--- NOTE | 2018-03-05 19:20 | NUR ---
Psychiatrist Communication: Pt reported that she is unable to sleep and was prescribed 100mg Seroquel for sleep. Psychiatrist made aware with new order for 100mg Seroquel for sleep HSPRN.
[2018-03-05 20:00] VITALS: BP 111/61
--- NOTE | 2018-03-05 20:00 | NUR ---
CIWA 12 Patient reports chills and sweats, anxiety, agitation, restlessness, and mild pins and needles sensations. Current CIWA is 12. SN to administer meds as ordered.
--- NOTE | 2018-03-05 21:02 | NUR ---
PRN CLONIDINE Patient reports feeling anxious, agitated, and restless. PRN Clonidine 0.1mg given PO. Safety measures in place, side rails up x2, bed locked in low position, call light within reach. Will monitor for effectiveness.
--- NOTE | 2018-03-05 22:02 | NUR ---
PRN CLONIDINE REASSESSMENT Patient reports feeling "better" after the PRN Clonidine and the scheduled Valium. PRN Clonidine noted to be effective. Safety measures in place, side rails up x2, bed locked in low position, call light within reach. Will continue to monitor.
[2018-03-05] MEDS: QUETIAPINE FUMARATE 100 MG TABLET PO PRN (22:50)
--- NOTE | 2018-03-05 22:50 | NUR ---
PRN SEROQUEL Patient reports difficulty sleeping and is requesting sleep aid. PRN Seroquel 100mg given PO. Safety measures in place, side rails up x2, bed locked in low position, call light within reach. Will monitor for effectiveness.
--- NOTE | 2018-03-05 23:50 | NUR ---
PRN SEROQUEL REASSESSMENT Patient is observed in bed with eyes closed, respirations even and unlabored. PRN Seroquel noted to be effective. Safety measures in place, side rails up x2, bed locked in low position, call light within reach. Will continue to monitor.
[2018-03-06] VITALS: BP 102/58
--- NOTE | 2018-03-06 | NUR ---
CIWA DEFERRED CIWA deferred at this time due to patient sleeping; to be assessed while patient is awake. Respirations are even and unlabored. Safety measures in place, side rails up x2, bed locked in low position, call light within reach. Will continue to monitor.
[2018-03-06 04:00] VITALS: BP 102/60
--- NOTE | 2018-03-06 04:00 | NUR ---
CIWA DEFERRED Patient noted to be in bed resting with eyes closed breathing even and unlabored. Per protocol CIWA is to be assessed while awake. Safety measures in place, side rails up x2, low bed position, call light within reach. Will continue to monitor.
--- NOTE | 2018-03-06 04:55 | NUR ---
CIWA 13 Patient complains of anxiety, agitation, restlessness, and is visibly diaphoretic. Patient continues to verbalize irritation and frustration at the fact that she is unable to vape downstairs due to staffing. Current CIWA is 13. Safety measures in place, side rails up x2, bed locked in low position, call light within reach. Will continue to monitor.
[2018-03-06] MEDS: HYDROXYZINE PAMOATE 25 MG CAPSULE PO PRN (05:02)
--- NOTE | 2018-03-06 05:03 | NUR ---
PRN Vistaril Patient c/o increasing anxiety. Administered Vistaril 25 mg PO PRN as ordered. Will reassess.
--- NOTE | 2018-03-06 06:03 | NUR ---
PRN VISTARIL REASSESSMENT Patient reports improvement in anxiety, PRN Vistaril noted to be effective. Safety measures in place, side rails up x2, bed locked in low position, call light within reach. Will continue to monitor.
--- NOTE | 2018-03-06 07:18 | NUR ---
END OF SHIFT Patient is a 47-year-old female admitted on 03/05/18 for ETOH and benzodiazepine withdrawal. Patient is currently on a 3-day Valium taper, which started yesterday, tolerating well. Patients last CIWA was 13 at 0455 this morning. Patient received PRN Clonidine, Seroquel, and Vistaril; all PRN medications were noted to be effective. Patient slept for 6 hours, total intake of 1,855mL, void x3, stool x0. Patient is on fall and seizure precautions with no previous seizure history. Safety measures in place, side rails up x2, bed locked in low position, call light within reach. Will endorse to day shift.
[2018-03-06 07:35] LABS: CREATININE 0.9 mg/dL (0.6-1.3)
--- NOTE | 2018-03-06 07:45 | NUR ---
START OF SHIFT Pt is a 47 yr old female, AA&Ox4. Pt was admitted on 03/05/18 for ETOH/Benzo withdrawal and is on 3 day Valium taper as ordered. Received report from on line csr nurse. Pt received Clonidine PRN, Vistaril PRN, and Seroquel PRN during the night. Pt slept for 6 hrs. Last CIWA score was 13 at 0500. Pt is currently c/o anxiety, agitation, sweats, chills and pins and needles on BUE. Fine tremors are seen on BUE. Skin is intact, warm and moist to touch. Pt was encouraged increase fluid intake for hydration. Safety precautions observed. Call light is within reach. Will continue to monitor.
[2018-03-06 08:00] VITALS: BP 106/76
[2018-03-06] MEDS: MULTIVITAMINS,THERAPEUTIC TABLET PO SCH (08:39)
[2018-03-06] MEDS: FOLIC ACID 1 MG TABLET PO SCH (08:39)
[2018-03-06] MEDS: DIAZEPAM 5 MG TABLET PO SCH ×3 (08:39→20:25)
[2018-03-06] MEDS: THIAMINE HCL 100 MG TABLET PO SCH (08:39)
[2018-03-06] MEDS: GABAPENTIN 400 MG CAPSULE PO SCH ×3 (08:39→20:25)
[2018-03-06] MEDS: CLONIDINE HCL 0.1 MG TABLET PO PRN ×3 (08:45→21:39)
--- NOTE | 2018-03-06 08:46 | NUR ---
PRN GIVEN/MEDICATION REFUSED Pt refused to have TB skin test done. Pt states, "I don't want to have it done". Pt was educated on the importance of TB skin test, pt was able to verbalize understanding but continued to refuse. Pt was c/o increase anxiety, agitation, sweats and pins and needle sensation on BUE. Fine tremors are seen. CIWA score was 13 at this time. Pt received Valium 5mg PO as scheduled at 0900 and Clonidine 0.1mg PO PRN for anxiety. Encourage increase fluid intake for hydration. Will continue to monitor.
[2018-03-06] MEDS ORDERED: TUBERCULIN,PURIF.PROT.DERIV. 5 TU/0.1 ML TEST ID ONE (09:00)
--- NOTE | 2018-03-06 09:46 | NUR ---
PRN RE-ASSESSMENT Clonidine 0.1mg PO PRN was effective. Pt continue to c/o anxiety but states she is able to cope with anxiety level. pt was encouraged to attend group therapy. Will continue to monitor.
[2018-03-06 11:06] LABS: HEPATITIS B SURFACE AG Negative (Negative)
[2018-03-06 12:00] VITALS: BP 121/76
--- NOTE | 2018-03-06 12:00 | NUR ---
CIWA ASSESSMENT Pt was c/o anxiety, agitation, sweats, restlessness and pins and needles on BUE. Pt is observed with fine tremors on BUE. CIWA score was 10. Encourage increase fluid intake for hydration. will continue to monitor.
--- NOTE | 2018-03-06 13:29 | NUR ---
Therapist prompted client to attend twice daily group therapy sessions and twice daily rec therapy sessions.
--- NOTE | 2018-03-06 14:51 | NUR ---
PRN GIVEN Pt c/o increase anxiety and requested for Clonidine. Pt was encouraged to attend group therapy. Clonidine 0.1mg PO PRN was given as ordered. will continue to monitor.
--- NOTE | 2018-03-06 15:51 | NUR ---
PRN RE-ASSESSMENT Clonidine 0.1mg PRN was effective for anxiety. pt continues to c/o anxiety but is able to cope with anxiety level. Will continue to monitor.
[2018-03-06 16:00] VITALS: BP 110/74
--- NOTE | 2018-03-06 19:13 | NUR ---
END OF SHIFT Pt is a 47 yr old female, AA&Ox4. Pt was admitted on 03/05/18 for ETOH/Benzo withdrawal and is on 3 day Valium taper as ordered. Pt has been cooperative with medication regimen and plan of care. Pt was encouraged to attend group therapy but refused to go. Pt was c/o increase anxiety, agitation, sweats and chills. Pt was observed with fine tremors and restlessness. Pt was given Clonidine 0.1mg PO at 0845 and at 1451, medication was effective. Last CIWA score was 10 at 1600. Pt was encouraged increase fluid intake for hydration. Safety precautions observed. Call light is within reach. Endorsed to date night caregiver nurse to continue with care.
--- NOTE | 2018-03-06 20:00 | NUR ---
Start of shift Patient is 47 years old female admitted 03/05/2018 for ETOH, Xanax, and Ambien. Patient is on a 3 day Valium taper started on 03/05/2018. Patients last CIWA 10. Per endorsement patient was experiencing tremors and was anxious. PRN Clonidine was given at 1441 and was medication was noted to be effective. Upon rounds patient was noted in her room watching tv and lights off, patient was able to verbalize that she wanted to get discharge tomorrow 03/07/2018 and stated I would like to talk to the doctor, to see if I can get discharge sooner. Reviewed 2100 medications with patient and verbalized understanding of medication regimen and asked to Clonidine and Seroquel for sleep. Patient observed to be anxious, agitated, with flat affect. Safety measures in place, bed lock in low position, side rails up x2, and call light within reach. Will continue to monitor.
[2018-03-06 20:22] VITALS: BP 128/72
--- NOTE | 2018-03-06 21:39 | NUR ---
PRN Medication Administration Patient is noted verbalizing increased chills, sweats, and anxiety. PRN Clonidine administered as per patients request. Patient is noted to be very focused on medication and medication doses. Attempted to redirect patient but patient is noted to easily get agitated. Will continue to monitor.
--- NOTE | 2018-03-06 22:30 | NUR ---
PRN Medication Reassessment Patient is noted in bed awake, and watching TV. patient is able to verbalize "the medication helped. Ill go ahead and take my Seroquel in about an hour after I go out to smoke." PRN Clonidine noted to be effective per patient. Will continue to monitor.
[2018-03-06] MEDS: QUETIAPINE FUMARATE 100 MG TABLET PO PRN (23:12)
--- NOTE | 2018-03-06 23:15 | NUR ---
PRN Medication Administration Upon rounds patient was noted in bed sleeping. Upon entering room patient was easily awakened. She was quickly requested her sleep medication of Seroquel and clearance for a smoke break. PRN Seroquel administered as per patients request. Will continue to monitor.
[2018-03-07] VITALS (7 sets, daily range): BP systolic 93–126; BP diastolic 50–80
--- NOTE | 2018-03-07 | NUR ---
CIWA Deferred Patient noted to be in bed resting with eyes closed, breathing even and unlabored. Per protocol CIWA is to be assessed while awake. Safety measures in place, bed lock in low position, side rails up x2, and call light within reach. Will continue to monitor.
--- NOTE | 2018-03-07 00:15 | NUR ---
PRN Medication Reassessment patient is noted sleeping in bed. Breathing even and non labored. No signs of restlessness or discomfort noted. PRN Seroquel noted to be effective. Will continue to monitor.
[2018-03-07] MEDS: HYDROXYZINE PAMOATE 25 MG CAPSULE PO PRN (03:40)
--- NOTE | 2018-03-07 03:41 | NUR ---
PRN Medication administration patient noted awake and verbalizing "I cant seem to sleep. any and every little thing wakes me up. can I please have Vistaril" Patient is noted with increased anxiety, restlessness and agitation. PRN Vistaril administered. Will continue to monitor.
--- NOTE | 2018-03-07 04:30 | NUR ---
PRN Medication Reassessment/CIWA Deferred Patient is noted in bed with eyes closed. Breathing even and non labored. No restlessness or discomfort noted. PRN Vistaril noted to be effective. CIWA deferred due to patient sleeping. Will continue to monitor.
--- NOTE | 2018-03-07 07:28 | NUR ---
End of shift Patient is 47 years old female admitted 03/05/2018 for ETOH, Xanax, and Ambien. Patient is on a 3 day Valium taper started on 03/05/2018. Patients last CIWA 14. Per endorsement patient was experiencing tremors and was anxious. PRN Clonidine, Seroquel and Vistaril were given and medication was noted to be effective. Patient slept for 6 hours, total intake was 500ml. Voided x2 and reported no bowel movement. Patient observed to be anxious, agitated, with flat affect. Safety measures in place, bed lock in low position, side rails up x2, and call light within reach. Will endorse to day shift.
--- NOTE | 2018-03-07 08:00 | NUR ---
START OF SHIFT Pt is a 47 yr old female, AA&Ox4. Pt was admitted on 03/05/18 for ETOH/Benzo withdrawal and is on 3 day Valium taper as ordered. Received report from biomedical engineering technician nurse. Pt received Clonidine PRN, Vistaril PRN, and Seroquel PRN during the night. Pt slept for 6 hrs. Last CIWA score was 14. Pt is currently c/o anxiety, agitation, sweats and chills. Pt is observed restlessness and fine tremors on BUE. Skin is intact, warm and moist to touch. CIWA score this morning is 10. Pt was encouraged increase fluid intake for hydration. Safety precautions observed. Call light is within reach. Will continue to monitor.
[2018-03-07] MEDS: MULTIVITAMINS,THERAPEUTIC TABLET PO SCH (08:53)
[2018-03-07] MEDS: FOLIC ACID 1 MG TABLET PO SCH (08:53)
[2018-03-07] MEDS: GABAPENTIN 400 MG CAPSULE PO SCH ×3 (08:53→21:22)
[2018-03-07] MEDS: CLONIDINE HCL 0.1 MG TABLET PO PRN ×2 (08:53→21:22)
--- NOTE | 2018-03-07 08:53 | NUR ---
PRN GIVEN Pt was c/o increase anxiety and sweats. Clonidine 0.1mg PO PRN was given as ordered. Will continue to monitor.
[2018-03-07] MEDS: DIAZEPAM 5 MG TABLET PO SCH ×2 (08:54→21:22)
[2018-03-07] MEDS: THIAMINE HCL 100 MG TABLET PO SCH (08:54)
--- NOTE | 2018-03-07 09:53 | NUR ---
PRN RE-ASSESSMENT Clonidine 0.1mg PO PRN was effective. Pt continues to c/o anxiety but states she is able to cope with anxiety level. Pt was encouraged to attend group therapy.
--- NOTE | 2018-03-07 19:05 | NUR ---
END OF SHIFT Pt is a 47 yr old female, AA&Ox4. Pt was admitted on 03/05/18 for ETOH/Benzo withdrawal and is on 3 day Valium taper as ordered. Pt has been cooperative with medication regimen and plan of care. Pt was encouraged to attend group therapy but refused to go. Pt was c/o increase anxiety, agitation, sweats and chills. Pt was given Clonidine 0.1mg PO PRN at 0853. Medication was effective. Pt was also observed with fine tremors and restlessness. Last CIWA score was 7 at 1600. Pt was encouraged increase fluid intake for hydration. Safety precautions observed. Call light is within reach. Endorsed to shiftman nurse to continue with care.
--- NOTE | 2018-03-07 19:50 | NUR ---
Start of Shift Note Received a 47 y/o female px, admitted for medically supervised withdrawal from ETOH and benzos. Px is placed on 3 day Valium taper on 03/05/2018. Px is tolerating it. Last reported CIWA 7 by AM shift nurse. During the rounds at 1950, px is awake on bed in fowlers position. Px appears anxiety and she has flushed face. She stated that her anxiety is only 2-3/10. She added, Can I have Clonidine Bed on lowest position, bed rails up 2x and call light within reach. Well continue to monitor.
--- NOTE | 2018-03-07 20:00 | NUR ---
CIWA 7 On assessment, px appears anxious. She said that her anxiety is around 2-3/10. will continue to monitor
--- NOTE | 2018-03-07 21:22 | NUR ---
PRN Clonidine Px received Clonidine 0.1 mg PO for anxiety. will continue to monitor
--- NOTE | 2018-03-07 22:22 | NUR ---
PRN Clonidine reassessment Px stated that her anxiety is still mild. will continue to monitor
--- NOTE | 2018-03-07 22:22 | NUR ---
Valium reassessment CIWA 7. Px still looks anxious but stated that her anxiety is very mild. will continue to monitor
[2018-03-07] MEDS: QUETIAPINE FUMARATE 100 MG TABLET PO PRN (23:44)
--- NOTE | 2018-03-07 23:44 | NUR ---
PRN Seroquel Px received Seroquel 100 mg PO for insomnia. will continue to monitor.
[2018-03-08] VITALS: BP 130/77
[2018-03-08 04:00] VITALS: BP 122/74
--- NOTE | 2018-03-08 04:00 | NUR ---
CIWA deferred CIWA deferred to the px is asleep, to assess if the px is awake per doctor's order.
[2018-03-08] MEDS: HYDROXYZINE PAMOATE 25 MG CAPSULE PO PRN (06:13)
--- NOTE | 2018-03-08 06:13 | NUR ---
PRN Vistaril Px woke up around 0530. She states that her anxiety is about 4-5. She received Vistaril 25 mg PO for anxiety. to reassess after an hour
--- NOTE | 2018-03-08 07:05 | NUR ---
End of Shift Note During the shift at 2121, px received Clonidine 0.1 mg PO for anxiety. It was not so effective. At 2344, px received Seroquel 100 mg PO for insomnia. Px slept after 0000. Px woke up around 0530. At 0615, she received. Vistaril 25 mg PO. To reassess after an hour. Oral intake of 1200 ml, voided 3x, No BM. She slept for 5 hours. Last CIWA 8. Bed on lowest position, bed rails up 2x and call light within reach. Well continue to monitor. Px endorsed to AM shift nurse.
[2018-03-08 08:00] VITALS: BP 101/66
--- NOTE | 2018-03-08 08:00 | NUR ---
START OF SHIFT Pt is a 47 yr old female, AA&Ox4. Pt was admitted on 03/05/18 for ETOH/Benzo withdrawal and has completed 3 day Valium taper as ordered. Received report from [employer] shift supervisor nurse. Pt received Clonidine PRN, Vistaril PRN, and Seroquel PRN during the night. Pt slept for 5 hrs. Last CIWA score was 8. Pt is observed anxious m/b difficulty staying still and is restless. Skin is intact, warm and moist to touch. Pt requested to smoke in the smoking patio. CIWA score this morning is 9. Pt was encouraged increase fluid intake for hydration. Safety precautions observed. Call light is within reach. Will continue to monitor.
[2018-03-08] MEDS: THIAMINE HCL 100 MG TABLET PO SCH (08:59)
[2018-03-08] MEDS: FOLIC ACID 1 MG TABLET PO SCH (08:59)
[2018-03-08] MEDS: GABAPENTIN 400 MG CAPSULE PO SCH ×3 (08:59→21:15)
[2018-03-08] MEDS: MULTIVITAMINS,THERAPEUTIC TABLET PO SCH (08:59)
[2018-03-08] MEDS: CLONIDINE HCL 0.1 MG TABLET PO PRN ×3 (09:00→21:15)
--- NOTE | 2018-03-08 09:00 | NUR ---
PRN GIVEN Pt was c/o increase anxiety. Clonidine 0.1mg PO PRN was given as ordered. Pt was encouraged increase fluid intake. will continue to monitor.
--- NOTE | 2018-03-08 10:00 | NUR ---
PRN RE-ASSESSMENT Clonidine 0.1mg PO PRN was effective. pt continues to c/o anxiety but is able to cope with anxiety level.
[2018-03-08 12:00] VITALS: BP 114/79
[2018-03-08] MEDS ORDERED: QUET100T PO (14:12)
[2018-03-08] MEDS ORDERED: GABA-536 PO (14:12)
[2018-03-08] MEDS ORDERED: CLON0.1T14 PO (14:12)
--- NOTE | 2018-03-08 14:55 | NUR ---
Therapist prompted client to attend group therapy.
--- NOTE | 2018-03-08 15:39 | NUR ---
PRN GIVEN Pt is c/o anxiety and requested for Clonidine. Clonidine 0.1mg PO PRN was given for anxiety. Will continue to monitor.
[2018-03-08 16:00] VITALS: BP 115/79
--- NOTE | 2018-03-08 16:39 | NUR ---
PRN RE-ASSESSMENT Clonidine PRN was effective. Pt continues to c/o anxiety but states she is able to cope with anxiety level. Pt was observed attending group therapy. Will continue to monitor.
--- NOTE | 2018-03-08 18:59 | NUR ---
END OF SHIFT Pt is a 47 yr old female, AA&Ox4. Pt was admitted on 03/05/18 for ETOH/Benzo withdrawal and has completed 3 day Valium taper as ordered. Pt has been cooperative with medication regimen and plan of care. Pt was encouraged to attend group therapy. Pt was c/o increase anxiety, agitation, sweats and chills. Pt was given Clonidine 0.1mg PO PRN at 0900 and at 1536. Medication was effective. Last CIWA score was 5 at 1600. Pt is to be discharged tomorrow to [facility]. Pt was encouraged increase fluid intake for hydration. Safety precautions observed. Call light is within reach. Endorsed to night monitor nurse to continue with care.
--- NOTE | 2018-03-08 19:45 | NUR ---
Start of Shift Note Received a 47 y/o female px, admitted for medically supervised withdrawal from ETOH and benzos. Px completed 3 day Valium taper. Px tolerated it. She is to be D/C tomorrow, 03/09/2018. Last reported CIWA 5 by AM shift nurse. During the rounds at 1945, px is awake on bed in fowlers position, watching TV. Px appears anxious. She stated that her anxiety is only 3/10. She added, Can I have Clonidine together with the Gabapentin? Bed on lowest position, bed rails up 2x and call light within reach. Well continue to monitor.
[2018-03-08 20:00] VITALS: BP 100/60
--- NOTE | 2018-03-08 20:00 | NUR ---
CIWA 6 On assessment, px appears anxious. She said that her anxiety is around 3/10. will continue to monitor
--- NOTE | 2018-03-08 21:15 | NUR ---
PRN Clonidine Px received Clonidine 0.1 mg PO for anxiety. To reassess after an hour
--- NOTE | 2018-03-08 22:15 | NUR ---
PRN Clonidine reassessment Px states that she feels better. will continue to monitor
[2018-03-09] VITALS: BP 108/63
--- NOTE | 2018-03-09 | NUR ---
CIWA 6 On assessment, px is still awake. She appears anxious. She said that her anxiety is still 3/10. will continue to monitor
[2018-03-09] MEDS: QUETIAPINE FUMARATE 100 MG TABLET PO PRN (00:24)
[2018-03-09] MEDS: HYDROXYZINE PAMOATE 25 MG CAPSULE PO PRN (00:24)
--- NOTE | 2018-03-09 00:24 | NUR ---
PRN medications Px received Seroquel 100 mg PO and Vistaril 25 mg PO for insomnia. will continue to monitor
--- NOTE | 2018-03-09 01:25 | NUR ---
PRN Seroquel and Vistaril reassessment Px is already sleeping at this moment. will continue to monitor
[2018-03-09 04:00] VITALS: BP 98/60
--- NOTE | 2018-03-09 04:00 | NUR ---
CIWA deferred CIWA deferred to the px is asleep, to assess if the px is awake per doctor's order.
--- NOTE | 2018-03-09 07:05 | NUR ---
End of Shift Note Px is to be D/C today, 03/09/2018. During the shift at 2115, px received Clonidine 0.1 mg PO for anxiety. It was effective. At 0024, she was given Seroquel 100 mg PO and Vistaril 25 mg PO for insomnia. They were effective. Px slept for 6 hours. Oral intake of 900 ml, voided 2x, No BM. Last CIWA 6. Bed on lowest position, bed rails up 2x and call light within reach. Well continue to monitor. Px endorsed to AM shift nurse.
[2018-03-09 08:00] VITALS: BP 128/85
--- NOTE | 2018-03-09 08:00 | NUR ---
Start of Shift Notes/CIWA Assessment: Received patient in her room. Awake, alert and verbally responsive x 4. Denies AV hallucinations noted. Denies S/I or H/I. She appears anxious, with restless legs while sitting. Mild agitation noted. Patient responds to questions with short answers. She appears easily irritable and easily agitated. CIWA 6. Patient is a 47 year old female admitted for ETOH and BZO withdrawal who completed her 3-day Valium taper as ordered. No adverse reactions noted. Educated patient on the discharge process and her medication regimen. Encouraged oral fluid intake. Per night report, patient was given PRN Clonidine, Seroquel and Vistaril. Slept for 6 hours. Last CIWA 6. All needs met and attended. Will continue to monitor.
[2018-03-09 08:21] VITALS: BP 128/85
[2018-03-09] MEDS: THIAMINE HCL 100 MG TABLET PO SCH (08:21)
[2018-03-09] MEDS: GABAPENTIN 400 MG CAPSULE PO SCH (08:21)
[2018-03-09] MEDS: MULTIVITAMINS,THERAPEUTIC TABLET PO SCH (08:21)
[2018-03-09] MEDS: CLONIDINE HCL 0.1 MG TABLET PO PRN (08:21)
[2018-03-09] MEDS: FOLIC ACID 1 MG TABLET PO SCH (08:21)
--- NOTE | 2018-03-09 08:21 | NUR ---
Clonidine 0.1mg PO given: Patient was noted with increased anxiety, sweats and increased agitation. Redirected as needed. Medicated patient with Clonidine 0.1mg PO as ordered. Will monitor for effectiveness.
--- NOTE | 2018-03-09 09:21 | NUR ---
Re-assessment: Clonidine Patient verbalized relief from anxiety, agitation and sweats. PRN Clonidine was effective
--- NOTE | 2018-03-09 09:27 | NUR ---
Discharged: Patient education provided regarding her discharge instructions. She verbalized good understanding of all teachings. CIWA 6. VS stable. Denies S/I or H/I noted. No AV hallucinations noted. [employer] cabinet checked. Cassette checked. Patient brought home meds and were signed. Placed all clothing, valuables and medication in duffel bag. Picked up by [facility] to be transported to [facility] in stable condition.
== END 2018-03-09 09:27 | disposition other institution (70) | DRG 895 ==
LOC: SRC 09:46
PROVIDERS: ADMIT Family Medicine Addiction Medicine; ATTEND Family Medicine Addiction Medicine
PROC: HZ2ZZZZ Detoxification Services for Substance Abuse Treatment (ICD-10-PCS; principal; 2018-03-05)
PROC: HZ41ZZZ Group Counseling for Substance Abuse Treatment, Behavioral (ICD-10-PCS; 2018-03-06)
DX: F10.239 Alcohol dependence with withdrawal, unspecified (principal); F13.229 Sedative, hypnotic or anxiolytic dependence with intoxication, unspecified; Y90.9 Presence of alcohol in blood, level not specified; F41.9 Anxiety disorder, unspecified; M06.9 Rheumatoid arthritis, unspecified; Z87.01 Personal history of pneumonia (recurrent); Z81.8 Family history of other mental and behavioral disorders; Z65.3 Problems related to other legal circumstances; Z63.0 Problems in relationship with spouse or partner; Z88.1 Allergy status to other antibiotic agents; Z88.2 Allergy status to sulfonamides; F17.290 Nicotine dependence, other tobacco product, uncomplicated; F32.9 Major depressive disorder, single episode, unspecified
CPT/HCPCS: 36415; 70030-TC; 80307; 80346; 83690; 83735; 84443; 84703; 85025; 86592; 86705; 86803; 87340; 87806; A4663; G0480; J3411